=== PATIENT | male | born 1980 | race American Indian/Alaskan Native ===

== ENCOUNTER 2018-05-08 08:42 | Day surgery (SDC) | payer OTHER ==
[2018-05-07 13:04] VITALS: BMI 31.5
[2018-05-08] MEDS ORDERED: Lidocaine Hydrochloride 5 ML INJ ONE (12:18)
[2018-05-08] MEDS ORDERED: Propofol 10 mg/ml Inj (20 ML) ONE (12:18)
[2018-05-08 13:14] VITALS: RESP 16
[2018-05-08 13:49] VITALS: BP 1168/68; PULSE 86; TEMP 99; O2SAT 97
== END 2018-05-08 13:50 | disposition home or self-care (01) ==
LOC: C.ENDO 08:42
PROVIDERS: ATTEND Internal Medicine Gastroenterology
DX: K52.9 Noninfective gastroenteritis and colitis, unspecified (principal); K21.9 Gastro-esophageal reflux disease without esophagitis; I10 Essential (primary) hypertension; E66.9 Obesity, unspecified
CPT/HCPCS: 45380; 88305; J2704